=== PATIENT | male | born 1975 | race African-American/Black ===

== ENCOUNTER 2024-05-15 04:50 | Day surgery (SDC) | payer BC, OTHER ==
[2024-05-15 07:05] VITALS: BMI 37.8
[2024-05-15 08:29] VITALS: TEMP 98.2
[2024-05-15 08:31] VITALS: RESP 19
[2024-05-15 08:48] VITALS: BP 112/66; PULSE 94
== END 2024-05-15 08:48 | disposition home or self-care (01) ==
LOC: JASU-ENDO 04:50
PROVIDERS: ATTEND Internal Medicine Gastroenterology
PROC: 0DBM8ZX Excision of Descending Colon, Via Natural or Artificial Opening Endoscopic, Diagnostic (ICD-10-PCS; principal; 2024-05-15 07:30)
DX: Z12.11 Encounter for screening for malignant neoplasm of colon (principal); D12.4 Benign neoplasm of descending colon; K64.8 Other hemorrhoids; I10 Essential (primary) hypertension; E11.9 Type 2 diabetes mellitus without complications; Z79.84 Long term (current) use of oral hypoglycemic drugs
CPT/HCPCS: 88305-TC